=== PATIENT | female | born 1980 | race Caucasian/White ===

== ENCOUNTER 2019-11-25 17:55 | Emergency (ER) | payer OTHER, SELFPAY ==
[2019-11-25 18:15] VITALS: BP 114/79; PULSE 108; RESP 20; TEMP 36.7; O2SAT 98
--- NOTE | 2019-11-25 18:31 | ED.DENTAL ---
HPI - Dental/Oral General Chief complaint: Dental/Oral Stated complaint: tooth ache Time Seen by Provider: 11/25/19 18:31 Source: patient History of Present Illness HPI Narrative: Patient presents with pain to left upper and lower teeth. Patient states she was scheduled to have her teeth removed tomorrow but appointment was canceled due to the duran virus outbreak. Patient states she has not take anything for pain or discomfort today. Patient states she is taken ibuprofen in the past with minimal relief. Patient states she finished antibiotic prescribed by dentist 4 days ago. Patient is here today requesting something for pain due to her dental pain. Location: Tooth # (15,16,17,18 broken with caries) Duration: other (chronic) Related Data Home Medications Medication Instructions Recorded Confirmed atorvastatin 40 mg PO DAILY 11/25/19 11/25/19 diclofenac potassium 50 mg PO BID 11/25/19 11/25/19 insulin glargine [Lantus Solostar 37 unit SUBCUT DAILY 11/25/19 11/25/19 U-100 Insulin] insulin lispro [Humalog KwikPen 0 unit SUBCUT ONCE 11/25/19 11/25/19 Insulin] lisinopril 20 mg PO DAILY 11/25/19 11/25/19 venlafaxine 37.5 mg PO DAILY 11/25/19 11/25/19 Allergies Allergy/AdvReac Type Severity Reaction Status Date / Time No Known Allergies Allergy Unknown Verified 11/25/19 18:22 Review of Systems Review of Systems: Narrative: CONSTITUTIONAL: Denies fever, chills, or sweats. EYES: Denies visual changes, redness, or discharge. ENT: Denies rhinorrhea, congestion, sore throat, or otalgia. NO FEVER. NO JAW SWELLING. NO NECK SWELLING. NO LIMITATION WITH SPEAKING OR SWALLOWING. HAS A HISTORY OF DENTAL CARIES. HAS NOT SEEN A DENTIST RECENTLY. CARDIOVASCULAR: Denies chest pain, palpitations, or edema. RESPIRATORY: Denies cough or dyspnea. GASTROINTESTINAL: Denies abdominal pain, nausea, vomiting, or diarrhea. GENITOURINARY: Denies dysuria or hematuria. SKIN: Denies rash or itching. MUSCULOSKELETAL: Denies back pain, joint pain, or myalgia. NEUROLOGIC: Denies headache, numbness, or weakness. PSYCHIATRIC: Denies anxiety or depression. [facility] Comments At time of signature, agree with nursing past medical, surgical, social and family history. There is no relevant family history pertinent to the presenting complaint Exam Narrative: Exam Narrative: GENERAL: Well-appearing, well-nourished, and in no acute distress. HEAD: Normocephalic, atraumatic. EYES: PERRLA and EOMI. ENT: Nares clear, no rhinorrhea or epistaxis. Mucous membranes moist. NO TRUE APICAL SWELLING, TOOTH TENDER TO PALPATION. NO FACIAL SWELLING. NO TRISMUS. ABLE TO OPEN MOUTH FULLY. NO NECK SWELLING OR VINOD'S ANGINA. NO ABSCESS TO BE DRAINED. no drooling, trismus, facial asymmetry or significant neck swelling NECK: Supple. CHEST: Clear to auscultation. No respiratory distress. HEART: Regular rate and rhythm. No murmur heard. Normal peripheral pulses. ABDOMEN: Soft, nontender, nondistended, normal active bowel sounds. EXTREMITIES: Normal range of motion. No edema. SKIN: Warm, dry, no rash. NEURO: No focal deficits. Alert and oriented x3. Ramya Coma Scale Eye Opening: Spontaneous 4 [place] Coma Scale Motor: Obeys Commands 6 Ramya Coma Scale Verbal: Oriented 5 Ramya Coma Scale Total 15 Course Vital Signs Vital signs: Vital Signs Temperature 36.7 C 11/25/19 18:15 Pulse Rate 108 H 11/25/19 18:15 Respiratory Rate 20 11/25/19 18:15 Blood Pressure 114/79 11/25/19 18:15 Pulse Oximetry 98 11/25/19 18:15 Temperature 36.7 C 11/25/19 18:15 Pulse Rate 108 H 11/25/19 18:15 Respiratory Rate 20 11/25/19 18:15 Blood Pressure 114/79 11/25/19 18:15 Pulse Oximetry 98 11/25/19 18:15 patient states she feels much better after toradol injection. discussed red flags encouraged patient to follow up with dentist as soon as possible. MDM - Dental/Oral Differential Diagnosis Differential diagnosis: Likely gingival abscess, dental wilder
[2019-11-25] MEDS: KETOROLAC (*BKC) 60 MG/2 ML VIAL IM (18:38)
== END 2019-11-25 19:10 | disposition home or self-care (01) ==
PROVIDERS: Emergency Provider Nurse Practitioner Family
DX: K02.9 Dental caries, unspecified (principal); S02.5XXA Fracture of tooth (traumatic), initial encounter for closed fracture; X58.XXXA Exposure to other specified factors, initial encounter; E78.00 Pure hypercholesterolemia, unspecified; I10 Essential (primary) hypertension; M19.90 Unspecified osteoarthritis, unspecified site; E11.9 Type 2 diabetes mellitus without complications
CPT/HCPCS: 96372; 99213; G0463; J1885

== ENCOUNTER 2020-04-18 15:54 | Emergency (ER) | payer OTHER, SELFPAY ==
[2020-04-18 16:05] VITALS: BP 135/78; PULSE 90; RESP 18; TEMP 36.8; O2SAT 99
--- NOTE | 2020-04-18 16:15 | ED.DENTAL ---
HPI - Dental/Oral General Chief complaint: Dental/Oral Stated complaint: jaw pain Time Seen by Provider: 04/18/20 16:21 Source: patient and RN notes reviewed Mode of arrival: ambulatory Limitations: no limitations History of Present Illness HPI Narrative: This is a 39 years old female presented office for evaluations of right thigh jaw pain for 2-day.States, she has bad teeth and needed to extract eventually. She rates pain 10/10; and has tried everything otc with no relief. Related Data Home Medications Medication Instructions Recorded Confirmed atorvastatin 40 mg PO DAILY 11/25/19 04/18/20 diclofenac potassium 50 mg PO BID 11/25/19 04/18/20 insulin glargine [Lantus Solostar 37 unit SUBCUT DAILY 11/25/19 04/18/20 U-100 Insulin] insulin lispro [Humalog KwikPen 0 unit SUBCUT ONCE 11/25/19 04/18/20 Insulin] lisinopril 20 mg PO DAILY 11/25/19 04/18/20 venlafaxine 37.5 mg PO DAILY 11/25/19 04/18/20 insulin glargine [Basaglar KwikPen 25 unit SUBCUT HS 04/18/20 04/18/20 U-100 Insulin] levetiracetam 250 mg PO BID 04/18/20 04/18/20 Allergies Allergy/AdvReac Type Severity Reaction Status Date / Time No Known Allergies Allergy Unknown Verified 04/18/20 15:58 Review of Systems Review of Systems: Narrative: CONSTITUTIONAL: Denies fever ENT: Denies rhinorrhea, congestion, sore throat, otalgia. Reports right side jaw pain and painful to chew. CARDIOVASCULAR: Denies chest pain, palpitation RESPIRATORY: Denies dyspnea, wheezing, cough GASTROINTESTINAL: Denies abdominal pain, nausea, vomiting, diarrhea. SKIN: Denies rash MUSCULOSKELETAL: Denies acute back pain NEUROLOGIC: Denies lightheaded All other systems reviewed are negative, except as documented in HPI. [facility] Past Medical History Medical History (Updated 04/18/20 @ 16:27 by JUNI Brooke) Diabetes HLD (hyperlipidemia) HTN (hypertension) Migraines Peripheral neuropathy Surgical History Surgical History (Updated 04/18/20 @ 16:00 by JUNI Brooke) Hx of cholecystectomy Hx of tonsillectomy Hx of tubal ligation Family History Family History (Updated 04/18/20 @ 16:01 by JUNI Brooke) Father Heart disease Acute myocardial infarction Mother Hypertension COPD (chronic obstructive pulmonary disease) Social History Social History (Updated 04/18/20 @ 16:50 by JUNI Brooke) Smoking status: Former smoker Comments At time of signature, I agree with nursing past medical, surgical, social and family history. There is no relevant family history pertinent to the presenting complaint. Exam Narrative: Exam Narrative: GENERAL: This is a well-nourished, well-developed patient, in no apparent distress. EYES: Sclera and conjunctivae normal ENT: External ears normal. Nose and lips normal. Airway patent.Lower molars teeth are very carious and the gum is swollen and tender around it. There is no facial swelling, cervical or submandibular lymphadenopathy. CARDIOVASCULAR: Regular rate and rhythm without murmurs, gallops, or rubs. RESPIRATORY: Clear to auscultation. Breath sounds equal bilaterally. No wheezes, rales, or rhonchi. GASTROINTESTINAL: Abdomen soft, non-tender, nondistended. Bowel sounds are active. No hepato-splenomegaly, or palpable masses. No guarding. SKIN: warm, intact with no suspicious lesions or rash, good texture and turgor. NEURO: awake, alert, and oriented to person, place and time. There were no obvious focal neurologic abnormalities. Course Vital Signs Vital signs: Vital Signs Temperature 98.3 F 04/18/20 16:05 Pulse Rate 90 04/18/20 16:05 Respiratory Rate 18 04/18/20 16:05 Blood Pressure 135/78 04/18/20 16:05 Pulse Oximetry 99 04/18/20 16:05 Temperature 98.3 F 04/18/20 16:05 Pulse Rate 90 04/18/20 16:05 Respiratory Rate 18 04/18/20 16:05 Blood Pressure 135/78 04/18/20 16:05 Pulse Oximetry 99 04/18/20 16:05 MDM - Dental/Oral MDM Narrative Medical de
== END 2020-04-18 16:30 | disposition home or self-care (01) ==
PROVIDERS: Emergency Provider Nurse Practitioner; PCP Nurse Practitioner Adult Health
DX: K02.9 Dental caries, unspecified (principal); Z87.891 Personal history of nicotine dependence; E78.5 Hyperlipidemia, unspecified; I10 Essential (primary) hypertension; E11.42 Type 2 diabetes mellitus with diabetic polyneuropathy; Z79.4 Long term (current) use of insulin
CPT/HCPCS: 99213; G0463

== ENCOUNTER 2020-05-12 18:01 | Emergency (ER) | payer OTHER, SELFPAY ==
--- NOTE | ~2020-05-12 | US_ITS ---
US pelvic complete w TV DATE: 05/12/2020 21:42 INDICATION: Right lower abdominal pain. Rule out ovarian torsion. TECHNIQUE: Real-time imaging via transabdominal and transvaginal approaches COMPARISON: 05/12/2020 CT abdomen pelvis FINDINGS: The uterus measures 10 cm height, 5.8 cm transverse and 3.9 cm AP dimension. Cervical nabot hian cysts are identified. The central endometrial echo complex measures 3 mm AP dimension. Right ovary measures 3.4 x 1.6 x 1.8 cm. Left ovary measures 3.2 x 2.5 x 2.1 cm. Bilateral up to appr oximately 12 mm ovarian follicular cysts are noted. There is vascular flow to both ovaries, no eviden ce of ovarian torsion. No pelvic mass lesion or abnormal pelvic fluid collection is evident. IMPRESSION: No evidence of ovarian torsion Reviewed, dictated and finalized at [facility] Reviewed, dictated and finalized at [facility].
--- NOTE | ~2020-05-12 | CT_ITS ---
EXAMINATION: CT abdomen pelvis w con DATE: 05/12/2020 19:35 INDICATION: Right lower quadrant abdominal pain TECHNIQUE: Computed tomography (CT) of the abdomen and pelvis was performed with 100 cc Omnipaque 350 intravenous contrast. Automated exposure control and iterative reconstruction technique were employe d. Exam dose: 610.37 mGy-cm total exam DLP. COMPARISON: 05/28/2014 CT abdomen pelvis FINDINGS: Stable small pleural-based opacity in the right lower lobe and stable left greater fissural node, both unchanged since 05/28/2014. No pulmonary infiltrate or consolidation is detected in the included lower lung zones. Normal heart size. No pericardial or pleural effusion. Diffuse hepatic steatosis. No hepatic space-occupying mass lesion. Status post cholecystectomy. No bi le duct dilatation. Normal splenic size. No pancreatic mass lesion or calcification or ductal dilatation. Normal morphology of the adrenal glands. No renal mass lesion or urinary tract calculus or hydroureteronephrosis. The uterus, adnexal areas and urinary bladder unremarkable. Normal caliber of the abdominal aorta. No intraperitoneal or retroperitoneal or pelvic mass lesion or adenopathy or ascites is noted. Normal appendix. No bowel obstruction or intraperitoneal free air. Included skeletal structures are unremarkable. IMPRESSION: Normal appendix Diffuse hepatic steatosis Reviewed, dictated and finalized at [facility] Reviewed, dictated and finalized at [facility].
[2020-05-12 18:04] VITALS: BP 145/91; PULSE 97; RESP 18; TEMP 36; O2SAT 100
[2020-05-12 18:28] LABS: Basophils Absolute Auto 0.1 K/mm3 (0.0-0.1); Basophils Percent Auto 0.9 % (0.2-1.2); Eosinophils Absolute Auto 0.8 K/mm3 (0-0.3); Eosinophils Percent Auto 7.5 % (0-4.4); Hematocrit 46.2 % (37.0-47.0); Hemoglobin 15.5 g/dL (12.0-15.0); Immature Granulocyte Absolute 0.04 K/mm3 (0.00-0.031); Immature Granulocyte Percent A 0.4 % (0-0.5); Lymphocytes Absolute Auto 2.94 K/mm3 (0.9-3.2); Lymphocytes Percent Auto 29.1 % (18.3-44.2); Mean Corpuscular HGB Conc 33.5 g/dl (32-36); Mean Corpuscular Hemoglobin 26.7 pg (26-34); Mean Corpuscular Volume 79.7 fl (80-100); Mean Platelet Volume 10.9 fl (7.4-10.4); Monocytes Absolute Auto 0.4 K/mm3 (0.1-0.6); Monocytes Percent Auto 3.8 % (2.6-8.5); Neutrophils Absolute Auto 5.9 K/mm3 (1.3-6.7); Neutrophils Percent Auto 58.3 % (45.5-73.1); Platelet Count Result 325 k/mm3 (150-375); Red Cell Distribution Width 13.7 % (11.5-14.5); White Blood Count 10.1 K/mm3 (4.5-10.0)
[2020-05-12 18:30] LABS: Add Urine Microscopic? YES; Appearance Urine Clear (Clear); Bilirubin Urine Negative (Negative); Blood Urine 2+ (Negative); Color Urine Straw (Yellow); Glucose Urine UA 3+ mg/dL (Negative); Ketones Urine Negative (Negative); Leukocyte Esterase Ur Negative LEU/UL (Negative); Nitrate Urine Negative (Negative); Protein Urine Negative (Negative); Squamous Epithelial Cell Urine Few /hpf (Few); Urobilinogen Urine Negative mg/dL (<2.0)
[2020-05-12 18:32] LABS: Specific Grav Ur 1.039 (1.001-1.035)
[2020-05-12 18:40] LABS: Alanine Aminotransferase 28 U/L (4-35); Albumin Level 4.6 g/dL (3.5-5.1); Alkaline Phosphatase 72 U/L (38-126); Anion Gap 11 mmol/L (8-16); Aspartate Amino Transferase 30 U/L (14-36); Bilirubin,Total 0.5 mg/dL (0.2-1.3); Blood Urea Nitrogen 7 mg/dL (7-17); Calcium 9.9 mg/dL (8.4-10.2); Carbon Dioxide 22 mmol/L (22-30); Chloride 101 mmol/L (98-107); Estimated CRCL calculation 140 ml/min; Estimated Glomerular Filt Rate > 60; Glucose 395 mg/dL (65-105); Lipase 60 U/L (23-300); Potassium 3.7 mmol/L (3.4-5.0); Sodium 134 mmol/L (137-145)
--- NOTE | 2020-05-12 19:21 | ED.ABDPAIN ---
HPI - Abdominal Pain General Chief Complaint: Abdominal Pain Stated Complaint: abd pain Time Seen by Provider: 05/12/20 19:03 Source: patient Mode of arrival: ambulatory Limitations: no limitations History of Present Illness HPI narrative: This patient is a 40 year old female with poorly controlled diabetes, HTN who presents for evaluation of right abdominal pain. She reports she has been having pain constantly since last Saturday. Her pain radiates to her back. She denies associated nausea, vomiting or fever. She also denies urinary complaints. She was evaluated at [place] last week , and she reports having a CT scan. She states no diagnosis was found. She was told if she continued to have pain to return for evaluation. Her pain is 05/19. MD elicited complaint: abdominal pain Onset (ago): week(s) (1) Pain Consistency: constant Location: RUQ and R flank Pain scale (0-10): 9 Exacerbating factors: movement Relieving factors: nothing Related Data Patient : No Home Medications Medication Instructions Recorded Confirmed atorvastatin 40 mg PO DAILY 11/25/19 04/18/20 diclofenac potassium 50 mg PO BID 11/25/19 04/18/20 insulin glargine [Lantus Solostar 37 unit SUBCUT DAILY 11/25/19 04/18/20 U-100 Insulin] insulin lispro [Humalog KwikPen 0 unit SUBCUT ONCE 11/25/19 04/18/20 Insulin] lisinopril 20 mg PO DAILY 11/25/19 04/18/20 venlafaxine 37.5 mg PO DAILY 11/25/19 04/18/20 insulin glargine [Basaglar KwikPen 25 unit SUBCUT HS 04/18/20 04/18/20 U-100 Insulin] levetiracetam 250 mg PO BID 04/18/20 04/18/20 Allergies Allergy/AdvReac Type Severity Reaction Status Date / Time No Known Allergies Allergy Unknown Verified 05/12/20 18:13 Review of Systems Review of Systems: All systems reviewed & are unremarkable except as noted in HPI and below Constitutional: Constitutional: Denies chills and Denies fever(s) Gastrointestinal: Gastrointestinal: Reports abdominal pain, Denies diarrhea, Denies nausea and Denies vomiting Genitourinary: Genitourinary: Denies hematuria, Denies nocturia, Denies dysuria and Reports flank pain PMFSH Past Medical History Medical History Diabetes HLD (hyperlipidemia) HTN (hypertension) Migraines Peripheral neuropathy Surgical History Surgical History Hx of cholecystectomy Hx of tonsillectomy Hx of tubal ligation Family History Family History (Updated 04/18/20 @ 16:01 by JUNI Brooke) Father Heart disease Acute myocardial infarction Mother Hypertension COPD (chronic obstructive pulmonary disease) Social History Social History (Updated 04/18/20 @ 16:50 by JUNI Brooke) Smoking status: Former smoker Gender identity (if verbalized by the patient): Female Exam Const: General: no acute distress and alert Orientation/consciousness: patient oriented x3 Eyes: EOM: EOMs intact bilaterally Chest: Chest palpation & inspection: normal inspection of the chest Resp: Effort & Inspection: normal respiratory effort, no retractions and no use of accessory muscles Auscultation: clear to auscultation bilaterally Cardio: Rate: regular rate Rhythm: regular rhythm Heart sounds: no murmurs GI: GI Palp: Yes Soft to palpation, Yes Tenderness to palpation present (GI) (RUQ, RLQ, right flank), No Guarding due to palpation present (GI), No Rigid due to palpation and No Hernia present : General: Yes no CVA tenderness Skin: General skin exam: normal color Rashes: no rashes Neuro: General: patient oriented x3 and moves all extremities Extrem: General: normal to inspection Course Reevaluation(s) Reevaluation #1: Patient is sitting in bed in no acute distress. She does not appear to be in pain. She reports pain is 8/10. I discussed no definite cause of pain found but I explained her diabetes is uncontrolled. She will followup with PCP and
[2020-05-12] MEDS: SODIUM CHLORIDE 0.9% IV 1,000 ML 999 ML IV CONT ×2 (20:19)
[2020-05-12] MEDS: KETOROLAC 30 MG/ML VIAL (*BKC) IV PUSH (20:20)
[2020-05-12] MEDS: ONDANSETRON INJ 4 MG/2 ML VIAL IV PUSH (20:21)
[2020-05-12] MEDS: INSULIN HUMAN REGULAR (*BKC) 100 UNITS/ML 8 UNITS SUB-Q (20:28)
[2020-05-12 22:12] VITALS: BP 140/97; PULSE 84; RESP 22; O2SAT 99
== END 2020-05-12 22:14 | disposition home or self-care (01) ==
PROVIDERS: Emergency Medicine; Emergency Provider General Practice
DX: R10.31 Right lower quadrant pain (principal); E11.65 Type 2 diabetes mellitus with hyperglycemia; E78.5 Hyperlipidemia, unspecified; I10 Essential (primary) hypertension; E11.42 Type 2 diabetes mellitus with diabetic polyneuropathy; Z87.891 Personal history of nicotine dependence; K76.0 Fatty (change of) liver, not elsewhere classified; Z79.4 Long term (current) use of insulin
CPT/HCPCS: 36415; 74177; 76830; 76856; 80053; 81001; 81025; 83690; 85025; 96361; 96374; 96375; 99284; J1170; J1815; J1885; J2405; J7030; Q9967

== ENCOUNTER 2021-04-13 08:52 | Emergency (ER) | payer OTHER, SELFPAY ==
[2021-04-13 08:59] VITALS: BP 126/83; PULSE 88; RESP 18; TEMP 36.7; O2SAT 99
--- NOTE | 2021-04-13 09:22 | ED.EYEPROB ---
HPI - Eye Problem General Chief complaint: Eye Problems Stated complaint: Redness and swollen left Eye Source: patient and RN notes reviewed Limitations: no limitations History of Present Illness HPI Narrative: The patient, on several meds including for diabetes, presents with lid discomfort. Patient states she has typical, with half week onset of left upper lid swelling. No injury, photophobia, discharge, redness; symptoms are mild worse with palpation or blinking, unrelieved with warm compresses. Discussed plan to provide antibiotics, and to see eye doctor if not improved Related Data Home Medications Medication Instructions Recorded Confirmed atorvastatin 40 mg PO DAILY 11/25/19 04/13/21 diclofenac potassium 50 mg PO BID 11/25/19 04/13/21 insulin glargine [Lantus Solostar 37 unit SUBCUT DAILY 11/25/19 04/13/21 U-100 Insulin] insulin lispro [Humalog KwikPen 0 unit SUBCUT ONCE 11/25/19 04/13/21 Insulin] lisinopril 20 mg PO DAILY 11/25/19 04/13/21 venlafaxine 37.5 mg PO DAILY 11/25/19 04/13/21 levetiracetam 250 mg PO BID 04/18/20 04/13/21 Allergies Allergy/AdvReac Type Severity Reaction Status Date / Time No Known Allergies Allergy Unknown Verified 04/13/21 09:06 Review of Systems Review of Systems: General/Constitutional: No weight loss,fever Eyes: N0: Redness, possible discharge Ears/Nose/Throat: No: Epistaxis,ear discharge Respiratory: Denies: Hemoptysis Gastrointestinal: No Vomiting, Bleeding-rectal Skin: No Lumps, eruption Neurologic: No Focal Weakness,Sz Hematologic: Denies: Petechiae/Purpura Psychiatric: No: Suicida ideationl All Other Systems: Reviewed and Negative [facility] Past Medical History Medical History (Updated 04/13/21 @ 09:48 by Wolfgang Salazar MD) Diabetes HLD (hyperlipidemia) HTN (hypertension) Migraines Peripheral neuropathy Surgical History Surgical History Hx of cholecystectomy Hx of tonsillectomy Hx of tubal ligation Family History Family History (Updated 04/18/20 @ 16:01 by JUNI Brooke) Father Heart disease Acute myocardial infarction Mother Hypertension COPD (chronic obstructive pulmonary disease) Social History Social History (Updated 04/18/20 @ 16:50 by JUNI Brooke) Smoking status: Former smoker Gender identity (if verbalized by the patient): Female Comments At time of signature, agree with nursing past medical, surgical, social and family history. There is no relevant family history pertinent to the presenting complaint Exam Narrative: General Appearance: Well appearing, Well nourished, No distress EYE: Va 20/30; PERRLA ,Sxek-hwzergmd-aeccta : Left upper lid with internal stye, EOMI ,Lens normal), Normal corneas ; anterior chamber deep), no conjunctiva injection Ears: External ear normal, Auditory canal normal Nose: Normal nose, Nares clear Mouth/Throat: Normal appearing, Normal lips Neck: Supple, No adenopathy Respiratory: Airway patent, No respiratory distress Skin: Warm, Dry; healing acneiform and follicular changes on the face Neurological: A&O x3, CN II-X intact Psychiatric: Normal mood, Normal affect Course Vital Signs Vital signs: Vital Signs Temperature 98.0 F 04/13/21 08:59 Pulse Rate 88 04/13/21 08:59 Respiratory Rate 18 04/13/21 08:59 Blood Pressure 126/83 04/13/21 08:59 Pulse Oximetry 99 04/13/21 08:59 Temperature 98.0 F 04/13/21 08:59 Pulse Rate 88 04/13/21 08:59 Respiratory Rate 18 04/13/21 08:59 Blood Pressure 126/83 04/13/21 08:59 Pulse Oximetry 99 04/13/21 08:59 Discharge Plan Discharge Clinical Impression: Hordeolum internum left upper eyelid, Localized skin eruption Patient Disposition: Home, Self-Care Condition: Stable Instructions: Tati (ED) Additional Instructions: See eye doctor if not improved Prescriptions: New sulfamethoxazole-trimethoprim [Bactrim] 400-80 m
== END 2021-04-13 09:28 | disposition home or self-care (01) ==
PROVIDERS: Emergency Provider Emergency Medicine; PCP Nurse Practitioner Adult Health
DX: H00.024 Hordeolum internum left upper eyelid (principal); R21 Rash and other nonspecific skin eruption; Z87.891 Personal history of nicotine dependence; E11.9 Type 2 diabetes mellitus without complications; E78.5 Hyperlipidemia, unspecified; E11.42 Type 2 diabetes mellitus with diabetic polyneuropathy
CPT/HCPCS: 99213; G0463

== ENCOUNTER 2021-06-16 09:22 | Emergency (ER) | payer OTHER, SELFPAY ==
--- NOTE | 2021-06-16 09:25 | ED.SKABFB ---
HPI - Skin/Abscess/Foreign Bdy General Stated complaint: Skin Sore Time Seen by Provider: 06/16/21 09:25 Source: patient and RN notes reviewed History of Present Illness HPI narrative: Patient is a 41-year-old female who presents the urgent care with complaints of a sore in her bellybutton. Patient states that she noticed it on Saturday and has been using Neosporin to the area. Patient states it is gotten increasingly more painful and started to drain clear to yellow drainage. Patient does have an incision in the bellybutton that has been there since 2003 for gallbladder removal. Patient does have a history of staph. No other acute complaints. No acute distress noted. Patient aware of the plan of care. Some parts of this dictation were generated by voice recognition software and may contain typographical and/or grammatical inaccuracies. Related Data Home Medications Medication Instructions Recorded Confirmed atorvastatin 40 mg PO DAILY 11/25/19 06/16/21 diclofenac potassium 50 mg PO BID 11/25/19 06/16/21 insulin glargine [Lantus Solostar 37 unit SUBCUT DAILY 11/25/19 06/16/21 U-100 Insulin] insulin lispro [Humalog KwikPen 0 unit SUBCUT ONCE 11/25/19 06/16/21 Insulin] lisinopril 20 mg PO DAILY 11/25/19 06/16/21 venlafaxine 37.5 mg PO DAILY 11/25/19 06/16/21 levetiracetam 250 mg PO BID 04/18/20 06/16/21 Allergies Allergy/AdvReac Type Severity Reaction Status Date / Time No Known Allergies Allergy Unknown Verified 06/16/21 09:34 Review of Systems Review of Systems: CONSTITUTIONAL: Denies fever, chills, or sweats. EYES: Denies visual changes, redness, or discharge. ENT: Denies rhinorrhea, congestion, sore throat, or otalgia. CARDIOVASCULAR: Denies chest pain, palpitations, or edema. RESPIRATORY: Denies cough or dyspnea. GASTROINTESTINAL: Denies abdominal pain, nausea, vomiting, or diarrhea. GENITOURINARY: Denies dysuria or hematuria. SKIN: Reports of inflamed painful sore in the bellybutton MUSCULOSKELETAL: Denies back pain, joint pain, or myalgia. NEUROLOGIC: Denies headache, numbness, or weakness. All other systems reviewed are negative, except as documented in HPI. [facility] Past Medical History Medical History (Updated 06/16/21 @ 09:43 by JUNI Gaona) Diabetes HLD (hyperlipidemia) HTN (hypertension) Migraines Peripheral neuropathy Surgical History Surgical History Hx of cholecystectomy Hx of tonsillectomy Hx of tubal ligation Family History Family History (Updated 04/18/20 @ 16:01 by JUNI Brooke) Father Heart disease Acute myocardial infarction Mother Hypertension COPD (chronic obstructive pulmonary disease) Social History Social History (Updated 04/18/20 @ 16:50 by JUNI Brooke) Smoking status: Former smoker Gender identity (if verbalized by the patient): Female Comments At the time of my signature, I reviewed and agree with the nursing past medical, surgical, social, and family history. There is no relevant family history pertinent to the patient complaint. Exam Narrative: GENERAL: This is a well-nourished, well-developed patient, in no apparent distress. HEAD: normocephalic, atraumatic. EYES: PERRL. Sclera clear/white. Vision is grossly intact. EARS: External ears normal NOSE: External nose normal with no obvious nasal discharge, nares without redness, no rhinorrhea. THROAT: Mucous membranes moist NECK: Neck supple, non-tender without lymphadenopathy, masses or thyromegaly. CARDIOVASCULAR: Regular rate and rhythm without murmurs, gallops, or rubs. RESPIRATORY: Clear to auscultation. Breath sounds equal bilaterally. No wheezes, rales, or rhonchi. SKIN: Moderate erythema and tenderness to the inner bellybutton region with scant clear to yellow drainage NEURO: awake, alert, and oriented to person, place and time. There were no obvious focal neurologic abnormalities. EXTREMITIES: No clubbing, cyan
[2021-06-16 09:30] VITALS: BP 126/81; PULSE 88; RESP 18; TEMP 36.9; O2SAT 99
== END 2021-06-16 09:45 | disposition home or self-care (01) ==
PROVIDERS: Emergency Provider Nurse Practitioner Family
DX: L03.316 Cellulitis of umbilicus (principal); Z22.322 Carrier or suspected carrier of Methicillin resistant Staphylococcus aureus; F17.200 Nicotine dependence, unspecified, uncomplicated; E78.5 Hyperlipidemia, unspecified; I10 Essential (primary) hypertension; E11.42 Type 2 diabetes mellitus with diabetic polyneuropathy
CPT/HCPCS: 99213; G0463

== ENCOUNTER 2021-10-07 08:46 | Emergency (ER) | payer OTHER, SELFPAY ==
[2021-10-07 08:52] VITALS: BP 108/79; PULSE 91; RESP 20; TEMP 36.5; O2SAT 100
--- NOTE | 2021-10-07 08:52 | ED.URI ---
HPI - URI/Sore Throat General Stated Complaint: Ear Pain Source: patient and RN notes reviewed Mode of arrival: ambulatory Limitations: no limitations History of Present Illness MD elicited complaint: cough and sore throat Related Data Home Medications Medication Instructions Recorded Confirmed atorvastatin 40 mg PO DAILY 11/25/19 06/16/21 diclofenac potassium 50 mg PO BID 11/25/19 06/16/21 insulin glargine [Lantus Solostar 37 unit SUBCUT DAILY 11/25/19 06/16/21 U-100 Insulin] insulin lispro [Humalog KwikPen 0 unit SUBCUT ONCE 11/25/19 06/16/21 Insulin] lisinopril 20 mg PO DAILY 11/25/19 06/16/21 venlafaxine 37.5 mg PO DAILY 11/25/19 06/16/21 levetiracetam 250 mg PO BID 04/18/20 06/16/21 Allergies Allergy/AdvReac Type Severity Reaction Status Date / Time No Known Allergies Allergy Unknown Verified 06/16/21 09:34 Review of Systems Review of Systems: CONSTITUTIONAL: Denies malaise, chills, sweats, or fever. EYES: Denies visual changes, redness, or discharge. ENT: Reports rhinorrhea, congestion, sinus pain, otalgia and sore throat. CARDIOVASCULAR: Denies chest pain, palpitations, or edema. RESPIRATORY: Reports cough. Denies dyspnea. GASTROINTESTINAL: Denies abdominal pain, nausea, vomiting, diarrhea SKIN: Denies rash or itching. MUSCULOSKELETAL: Denies myalgia. NEUROLOGIC: Denies headache. All systems reviewed & are unremarkable except as noted in HPI and below PMFSH Past Medical History Medical History (Updated 06/17/21 @ 00:01 by Haseeb Manuel) Diabetes HLD (hyperlipidemia) HTN (hypertension) Migraines Peripheral neuropathy Surgical History Surgical History Hx of cholecystectomy Hx of tonsillectomy Hx of tubal ligation Family History Family History (Updated 04/18/20 @ 16:01 by JUNI Brooke) Father Heart disease Acute myocardial infarction Mother Hypertension COPD (chronic obstructive pulmonary disease) Social History Social History (Updated 04/18/20 @ 16:50 by JUNI Brooke) Smoking status: Former smoker Gender identity (if verbalized by the patient): Female Comments At time of signature, agree with nursing past medical, surgical, social and family history. There is no relevant family history pertinent to the presenting complaint Exam Narrative: GENERAL: Well-appearing, well-nourished, and in no acute distress. HEAD: Normocephalic EYES: PERRLA, conjunctivae clear ENT: Nares clear, turbinates edematous and erythematous, clear discharge. Mucous membranes moist. TM pearly miramontes with dull light reflex bilaterally; no tragal tenderness. Oropharynx not erythematous without lesions. Tonsils not enlarged and without exudate, no drooling, no hoarseness, no trismus, uvula midline. NECK: Supple. No lymphadenopathy CHEST: Clear to auscultation, breath sounds equal. No wheezing, rhonchi, rales, or stridor. No respiratory distress, speaks in full sentences. HEART: Regular rate and rhythm. No murmur heard. SKIN: Warm, dry, no rash. NEURO: Alert and oriented x3. PSYCH: Normal mood and affect Course Course Emergency Course: Patient is aware of diagnosis, understands and agrees to treatment plan. Anticipatory guidance given. Patient agrees to follow-up as directed and is aware of reasons to seek care at the emergency department. Portions of this record may have been created with voice recognition software Level of Care: Express Care Visit Vital Signs Vital signs: Reviewed. MDM - URI/Sore Throat MDM Narrative Medical decision making narrative: Differential diagnosis considered: Hsu virus, strep pharyngitis, allergic rhinitis, upper respiratory tract infection, sinusitis, rhinosinusitis, nasopharyngitis. viral pharyngitis, otitis media, otitis externa, pneumonia, bronchitis, viral cough syndrome, viral syndrome, and influenza. Exam findings show no acute concerns or changes; patient is non-toxic appearing and is in
--- NOTE | 2021-10-07 09:04 | ED.SKABFB ---
HPI - Skin/Abscess/Foreign Bdy General Stated complaint: Ear Pain Source: patient and RN notes reviewed Mode of arrival: ambulatory Limitations: no limitations History of Present Illness MD complaint: rash Related Data Home Medications Medication Instructions Recorded Confirmed atorvastatin 40 mg PO DAILY 11/25/19 10/07/21 diclofenac potassium 50 mg PO BID 11/25/19 10/07/21 insulin glargine [Lantus Solostar 37 unit SUBCUT DAILY 11/25/19 10/07/21 U-100 Insulin] insulin lispro [Humalog KwikPen 0 unit SUBCUT ONCE 11/25/19 10/07/21 Insulin] lisinopril 20 mg PO DAILY 11/25/19 10/07/21 venlafaxine 37.5 mg PO DAILY 11/25/19 10/07/21 levetiracetam 250 mg PO BID 04/18/20 10/07/21 Allergies Allergy/AdvReac Type Severity Reaction Status Date / Time No Known Allergies Allergy Unknown Verified 10/07/21 09:17 Review of Systems Review of Systems: CONSTITUTIONAL: Denies malaise, chills, sweats, or fever. EYES: Denies redness, or discharge. ENT: Denies rhinorrhea, congestion, swollen lips, swollen tongue CARDIOVASCULAR: Denies chest pain, palpitations, or edema. RESPIRATORY: Denies cough or dyspnea. GASTROINTESTINAL: Denies abdominal pain, nausea, vomiting SKIN: Reports rash MUSCULOSKELETAL: Denies joint painor myalgia. NEUROLOGIC: Denies headache. All systems reviewed & are unremarkable except as noted in HPI and below PMFSH Past Medical History Medical History (Updated 10/07/21 @ 09:16 by Tamie Ortiz NP) Diabetes HLD (hyperlipidemia) HTN (hypertension) Migraines Peripheral neuropathy Surgical History Surgical History Hx of cholecystectomy Hx of tonsillectomy Hx of tubal ligation Family History Family History (Updated 04/18/20 @ 16:01 by JUNI Brooke) Father Heart disease Acute myocardial infarction Mother Hypertension COPD (chronic obstructive pulmonary disease) Social History Social History (Updated 04/18/20 @ 16:50 by JUNI Brooke) Smoking status: Former smoker Gender identity (if verbalized by the patient): Female Comments At time of signature, agree with nursing past medical, surgical, social and family history. There is no relevant family history pertinent to the presenting complaint Exam Narrative: GENERAL: Well-appearing, well-nourished, and in no acute distress. HEAD: Normocephalic, atraumatic. EYES: PERRLA, conjunctivae clear, and EOMI. ENT: Mucous membranes moist. Oropharynx without edema, erythema or lesions. NECK: Supple. No lymphadenopathy CHEST: Clear to auscultation. No respiratory distress. HEART: Regular rate and rhythm. SKIN: Warm, dry. Patches of erythema and edema NEURO: Alert and oriented x3. PSYCH: Normal mood and affect Course Course Emergency Course: Patient is aware of diagnosis, understands and agrees to treatment plan. Anticipatory guidance given. Patient agrees to follow-up as directed and is aware of reasons to seek care at the emergency department. Portions of this record may have been created with voice recognition software Level of Care: Express Care Visit Vital Signs Vital signs: Vital Signs Temperature 97.7 F 10/07/21 08:52 Pulse Rate 91 10/07/21 08:52 Respiratory Rate 20 10/07/21 08:52 Blood Pressure 108/79 10/07/21 08:52 Pulse Oximetry 100 10/07/21 08:52 Temperature 97.7 F 10/07/21 08:52 Pulse Rate 91 10/07/21 08:52 Respiratory Rate 20 10/07/21 08:52 Blood Pressure 108/79 10/07/21 08:52 Pulse Oximetry 100 10/07/21 08:52 Reviewed. MDM - Skin/Abscess/Foreign Bdy MDM Narrative Medical decision making narrative: Does not appear at this time to be erythema multiforme, bullous, SJS, TEN; no evidence at this time to suggest RMSF, endocarditis or Lyme disease; patient looks well, nontoxic and is tolerating oral intake; no neurologic signs or symptoms; no headache, photophobia or neck pain; afebrile; appropriate for initial outpati
--- NOTE | 2021-10-07 09:22 | ED.EAR ---
HPI - Ear Problem General Chief complaint: Ear Stated complaint: Ear Pain Time Seen by Provider: 10/07/21 09:08 Source: patient and RN notes reviewed Mode of arrival: ambulatory Limitations: no limitations History of Present Illness HPI Narrative: 41-year-old female presents with concern for ongoing left ear pain. Reports she went to the emergency room on September 28 for ear pain, however reports she was treated for a different infection, a MRSA infection in her axillary area with Bactrim and cephalexin. Reports the provider did not address her ear pain. Reports she then went to her primary care doctor for ear pain who had her stop taking the Bactrim and cephalexin and placed her on doxycycline and neomycin polymyxin eardrops. Reports she has finished the doxycycline and has 1 dose of the eardrops left and has had no resolution of ear pain. Reports her pain is worsening, spreading to the surrounding ear area. She denies any recent history or current nasal congestion, rhinorrhea, sinus pain. She denies purulent drainage from the ear. She reports her primary provider told her to put peroxide in her ear which she has been doing, but however she now has some bleeding from the ear. MD Complaint: ear pain Related Data Home Medications Medication Instructions Recorded Confirmed atorvastatin 40 mg PO DAILY 11/25/19 10/07/21 diclofenac potassium 50 mg PO BID 11/25/19 10/07/21 insulin glargine [Lantus Solostar 37 unit SUBCUT DAILY 11/25/19 10/07/21 U-100 Insulin] insulin lispro [Humalog KwikPen 0 unit SUBCUT ONCE 11/25/19 10/07/21 Insulin] lisinopril 20 mg PO DAILY 11/25/19 10/07/21 venlafaxine 37.5 mg PO DAILY 11/25/19 10/07/21 levetiracetam 250 mg PO BID 04/18/20 10/07/21 Allergies Allergy/AdvReac Type Severity Reaction Status Date / Time No Known Allergies Allergy Unknown Verified 10/07/21 09:17 Review of Systems Review of Systems: CONSTITUTIONAL: Denies malaise, chills, sweats, or fever. EYES: Denies visual changes, redness, or discharge. ENT: Denies rhinorrhea, congestion, sinus pain, and sore throat. Reports left ear pain, pain surrounding the left ear CARDIOVASCULAR: Denies chest pain, palpitations, or edema. RESPIRATORY: Denies cough. Denies dyspnea. GASTROINTESTINAL: Denies abdominal pain, nausea, vomiting, diarrhea SKIN: Denies rash or itching. MUSCULOSKELETAL: Denies myalgia. NEUROLOGIC: Denies headache. All systems reviewed & are unremarkable except as noted in HPI and below PMFSH Past Medical History Medical History (Updated 10/07/21 @ 09:16 by Tamie Ortiz NP) Diabetes HLD (hyperlipidemia) HTN (hypertension) Migraines Peripheral neuropathy Surgical History Surgical History Hx of cholecystectomy Hx of tonsillectomy Hx of tubal ligation Family History Family History (Updated 04/18/20 @ 16:01 by JUNI Brooke) Father Heart disease Acute myocardial infarction Mother Hypertension COPD (chronic obstructive pulmonary disease) Social History Social History (Updated 04/18/20 @ 16:50 by JUNI Brooke) Smoking status: Former smoker Gender identity (if verbalized by the patient): Female Comments At time of signature, agree with nursing past medical, surgical, social and family history. There is no relevant family history pertinent to the presenting complaint Exam Narrative: GENERAL: Well-appearing, well-nourished, and in no acute distress. HEAD: Normocephalic EYES: PERRLA, conjunctivae clear ENT: Nares clear, no discharge. Mucous membranes moist. Right TM pearly miramontes with dull light reflex; left tragal tenderness with auditory canal erythema and edema, no purulent drainage. Left TM intact, erythematous and bulging without bleeding noted, no granulation tissue noted, no necrosis noted. No otorrhea noted. oropharynx not erythematous without lesions. Tonsils not enlarged and without exudate, no drooling, no hoarseness
== END 2021-10-07 09:25 | disposition home or self-care (01) ==
PROVIDERS: Emergency Provider Nurse Practitioner; PCP Nurse Practitioner Family
DX: H66.005 Acute suppurative otitis media without spontaneous rupture of ear drum, recurrent, left ear (principal); H60.502 Unspecified acute noninfective otitis externa, left ear; E78.5 Hyperlipidemia, unspecified; I10 Essential (primary) hypertension; E11.42 Type 2 diabetes mellitus with diabetic polyneuropathy
CPT/HCPCS: 99213; G0463

== ENCOUNTER 2021-11-05 12:21 | Emergency (ER) | payer OTHER, SELFPAY ==
[2021-11-05 12:24] VITALS: BP 144/102; PULSE 86; RESP 14; TEMP 36.5; O2SAT 100
--- NOTE | 2021-11-05 13:11 | ED.EAR ---
HPI - Ear Problem General Chief complaint: Ear Stated complaint: ear pain Time Seen by Provider: 11/05/21 12:30 History of Present Illness HPI Narrative: 41-year-old female presents to the emergency room with left ear pain for 1 month. Patient states she was seen in an outside emergency room 4 weeks ago, diagnosed with bilateral middle ear infections, and left otitis externa. Patient completed a course of doxycycline and polymyxin. Patient states 1 week after ER visit return to an urgent care, and was started on a course of Augmentin and Ciprodex. Patient is currently awaiting a consult with ENT. Patient states pain is worse with eating, drinking, and opening jaw. States pain is worse when using a Q-tip in her ear. Denies hearing changes. Related Data Home Medications Medication Instructions Recorded Confirmed atorvastatin 40 mg PO DAILY 11/25/19 10/07/21 diclofenac potassium 50 mg PO BID 11/25/19 10/07/21 insulin glargine [Lantus Solostar 37 unit SUBCUT DAILY 11/25/19 10/07/21 U-100 Insulin] insulin lispro [Humalog KwikPen 0 unit SUBCUT ONCE 11/25/19 10/07/21 Insulin] lisinopril 20 mg PO DAILY 11/25/19 10/07/21 venlafaxine 37.5 mg PO DAILY 11/25/19 10/07/21 levetiracetam 250 mg PO BID 04/18/20 10/07/21 Allergies Allergy/AdvReac Type Severity Reaction Status Date / Time No Known Allergies Allergy Unknown Verified 10/07/21 09:17 Review of Systems Review of Systems: CONSTITUTIONAL: Denies fever, chills, or sweats. EYES: Denies visual changes, redness, or discharge. ENT: Denies rhinorrhea, congestion, sore throat, or otalgia. Per HPI: Left ear pain CARDIOVASCULAR: Denies chest pain, palpitations, or edema. RESPIRATORY: Denies cough or dyspnea. GASTROINTESTINAL: Denies abdominal pain, nausea, vomiting, or diarrhea. GENITOURINARY: Denies dysuria or hematuria. SKIN: Denies rash or itching. MUSCULOSKELETAL: Denies back pain, joint pain, or myalgia. NEUROLOGIC: Denies headache, numbness, dizziness, or weakness. PSYCHIATRIC: Denies anxiety or depression. [facility] Past Medical History Medical History (Updated 11/05/21 @ 13:15 by Wolfgang Ragsdale APRN) Diabetes HLD (hyperlipidemia) HTN (hypertension) Migraines Peripheral neuropathy Surgical History Surgical History Hx of cholecystectomy Hx of tonsillectomy Hx of tubal ligation Family History Family History Father Heart disease Acute myocardial infarction Mother Hypertension COPD (chronic obstructive pulmonary disease) Social History Social History Smoking status: Former smoker Gender identity (if verbalized by the patient): Female Exam Narrative: GENERAL: Well-appearing, well-nourished, and in no acute distress. HEAD: Normocephalic, atraumatic. EYES: PERRLA and EOMI. ENT: Nares clear, no rhinorrhea or epistaxis. Mucous membranes moist. Oropharynx without tonsillar hypertrophy exudate or other lesions. Bilateral TMs pearly miramontes nonbulging. Clear fluid noted behind TMs; preauricular tenderness radiates down beyond the jaw line NECK: Supple. No adenopathy or masses. No carotid bruits or JVD CHEST: Clear to auscultation. No respiratory distress. No wheezes rales or rhonchi HEART: Regular rate and rhythm. No murmur heard. Normal peripheral pulses. ABDOMEN: Soft, nontender, nondistended, normal active bowel sounds. EXTREMITIES: Normal range of motion. No edema. SKIN: Warm, dry, no rash. NEURO: No focal deficits. Alert and oriented x3. PSYCH: Normal mood and affect. Course Vital Signs Vital signs: Vital Signs Temperature 36.5 C 11/05/21 12:24 Pulse Rate 86 11/05/21 12:24 Respiratory Rate 14 11/05/21 12:24 Blood Pressure 144/102 H 11/05/21 12:24 Pulse Oximetry 100 11/05/21 12:24 Temperature 36.5 C 11/05/21 12:24 Pulse Rate 86 11/05/21 12:24 Resp
[2021-11-05] MEDS: KETOROLAC (*BKC) 60 MG/2 ML VIAL IM (13:22)
== END 2021-11-05 13:47 | disposition home or self-care (01) ==
PROVIDERS: Emergency Provider Nurse Practitioner Family; PCP Nurse Practitioner Adult Health
DX: H69.92 Unspecified Eustachian tube disorder, left ear (principal); E78.5 Hyperlipidemia, unspecified; I10 Essential (primary) hypertension; E11.42 Type 2 diabetes mellitus with diabetic polyneuropathy; Z79.4 Long term (current) use of insulin
CPT/HCPCS: 96372; 99284; J1100; J1885

== ENCOUNTER 2022-11-11 01:13 | Emergency (ER) | payer OTHER, SELFPAY ==
--- NOTE | ~2022-11-11 | XR_ITS ---
EXAMINATION: XR lumbar spine 2-3V DATE: 11/11/2022 03:03 INDICATION: Low back pain. Fall. TECHNIQUE: 3 views of lumbar spine were obtained. COMPARISON: CT abdomen and pelvis 05/12/2020 FINDINGS: There is 6 degrees levocurvature of lumbar spine. Vertebral body heights are normal. There is mildly decreased disc height at L5-S1. The facet joints are unremarkable. Surgical clips overlie t he right abdomen. IMPRESSION: 1. Mild lumbar spondylosis. Reviewed, dictated and finalized at location A. [facility] IMPRESSION: 1. Mild lumbar spondylosis.
--- NOTE | ~2022-11-11 | XR_ITS ---
EXAMINATION: XR chest 1V portable DATE: 11/11/2022 03:03 INDICATION: Cough. TECHNIQUE: A single frontal view of the chest was obtained. COMPARISON: Chest 2 views 12/02/2014, CT abdomen and pelvis 05/12/2020 FINDINGS: There is no pneumonia, pleural effusion, or pneumothorax. The heart size is normal. Surgica l clips in the right upper quadrant are likely from cholecystectomy. IMPRESSION: 1. No acute cardiopulmonary disease. Reviewed, dictated and finalized at location A. [facility]
[2022-11-11 01:17] VITALS: BP 120/79; PULSE 97; RESP 14; TEMP 36.4; O2SAT 100
[2022-11-11 01:22] LABS: Glucose Point of Care 98 mg/dl (65-105)
[2022-11-11 02:09] VITALS: BP 102/73; PULSE 94; RESP 19; O2SAT 96
--- NOTE | 2022-11-11 02:31 | ECG_ITS ---
Measurements Intervals [place] Rate: 89 P: 9 MN: 178 QRS: -6 QRSD: 84 T: 38 QT: 364 QTc: 445 Interpretive Statements SINUS RHYTHM CANNOT RULE OUT SEPTAL INFARCT, AGE INDETERMINATE BASELINE ARTIFACT- I, II, III, AVR, AVL, AVF, V4-V5 ABNORMAL ECG NO PREVIOUS ECG AVAILABLE FOR COMPARISON Electronically Signed On 11-11-2022 6:37:23 ANCHORMAN by Henrique Pettit D.O.
[2022-11-11] MEDS: DEXTROSE 50% 25 GM/50 ML SYRINGE IV PUSH (02:40)
[2022-11-11 02:45] LABS: Basophils Absolute Auto 0.1 K/mm3 (0.0-0.1); Basophils Percent Auto 0.8 % (0.2-1.2); Eosinophils Absolute Auto 2.3 K/mm3 (0-0.3); Eosinophils Percent Auto 12.5 % (0-4.4); Hematocrit 43.8 % (37.0-47.0); Hemoglobin 14.4 g/dL (12.0-15.0); Immature Granulocyte Absolute 0.07 K/mm3 (0.00-0.031); Immature Granulocyte Percent A 0.4 % (0-0.5); Lymphocytes Absolute Auto 2.93 K/mm3 (0.9-3.2); Lymphocytes Percent Auto 15.9 % (18.3-44.2); Mean Corpuscular HGB Conc 32.9 g/dl (32-36); Mean Corpuscular Hemoglobin 26.9 pg (26-34); Mean Corpuscular Volume 81.9 fl (80-100); Mean Platelet Volume 10.4 fl (7.4-10.4); Monocytes Absolute Auto 0.8 K/mm3 (0.1-0.6); Monocytes Percent Auto 4.5 % (2.6-8.5); Neutrophils Absolute Auto 12.2 K/mm3 (1.3-6.7); Neutrophils Percent Auto 65.9 % (45.5-73.1); Platelet Count Result 353 k/mm3 (150-375); Red Blood Count 5.35 M/mm3 (4.2-5.4); Red Cell Distribution Width 14.1 % (11.5-14.5); White Blood Count 18.4 K/mm3 (4.5-10.0)
[2022-11-11 02:50] LABS: Glucose Point of Care 73 mg/dl (65-105)
[2022-11-11 02:54] LABS: Lactic Acid Reflex 2.1 mmol/L (0.7-2.0)
[2022-11-11 02:56] LABS: Alanine Aminotransferase 21 U/L (6-35); Albumin Level 4.5 g/dL (3.5-5.1); Alkaline Phosphatase 57 U/L (38-126); Anion Gap 8 mmol/L (8-16); Aspartate Amino Transferase 20 U/L (14-36); Bilirubin,Total 0.4 mg/dL (0.2-1.3); Blood Urea Nitrogen 12 mg/dL (7-17); Carbon Dioxide 25 mmol/L (22-30); Chloride 105 mmol/L (98-107); Estimated CRCL calculation 106 ml/min; Estimated Glomerular Filt Rate > 60; Glucose 75 mg/dL (65-110); Lipase 89 U/L (23-300); Magnesium 1.8 mg/dL (1.6-2.3); Potassium 3.1 mmol/L (3.4-5.0); Sodium 138 mmol/L (137-145)
[2022-11-11 03:17] LABS: Appearance Urine Clear (Clear); Bilirubin Urine 1+ (Negative); Blood Urine Negative (Negative); Color Urine Yellow (Yellow); Glucose Urine UA 3+ mg/dL (Negative); Ketones Urine 1+ mg/dL (Negative); Leukocyte Esterase Ur Negative LEU/UL (Negative); Nitrate Urine Negative (Negative); Protein Urine 2+ mg/dL (Negative); Urobilinogen Urine 0.2 mg/dL (<2.0)
[2022-11-11 03:20] LABS: Bacteria Urine Trace /hpf; Mucus Urine Moderate /lpf; Squamous Epithelial Cell Urine Many /hpf (Few); WBC Urine 16-20 /hpf
[2022-11-11 03:22] LABS: Add Urine Microscopic? YES
[2022-11-11 03:41] LABS: Glucose Point of Care 102 mg/dl (65-105)
--- NOTE | 2022-11-11 03:50 | ED.GENADULT ---
HPI - General Adult General Chief complaint: Syncope Stated complaint: syncopal episode, low blood sugars Time Seen by Provider: 11/11/22 02:24 History of Present Illness HPI narrative: Patient 42-year-old female who presents the emergency department with chief complaint of syncope patient reports she has prior history of diabetes and reports that her blood sugars have been bottoming out of the evenings. The patient reports she is then cut back on a lot of her diabetes medications and reports that she has had several episodes where she has passed out although these are when her blood sugars are low. Patient denies fever denies vomiting does report that she has pain in her back after she fell. Related Data Home Medications Medication Instructions Recorded Confirmed atorvastatin 40 mg tablet 40 mg PO DAILY 11/25/19 10/07/21 diclofenac potassium 50 mg tablet 50 mg PO BID 11/25/19 10/07/21 insulin glargine 100 unit/mL (3 37 unit subcut DAILY 11/25/19 10/07/21 mL) subcutaneous pen (Lantus Solostar U-100 Insulin) insulin lispro 100 unit/mL 0 unit subcut ONCE 11/25/19 10/07/21 subcutaneous pen (Humalog KwikPen (U-100) Insulin) lisinopril 20 mg tablet 20 mg PO DAILY 11/25/19 10/07/21 venlafaxine 37.5 mg 37.5 mg PO DAILY 11/25/19 10/07/21 capsule,extended release 24 hr levetiracetam 250 mg tablet 250 mg PO BID 04/18/20 10/07/21 Allergies Allergy/AdvReac Type Severity Reaction Status Date / Time No Known Allergies Allergy Unknown Verified 11/11/22 01:14 Review of Systems Review of Systems: A 10 system review of systems was completed on the patient and is negative except for what is stated in the HPI. Nursing and ancillary documentation was reviewed. [facility] Past Medical History Medical History (Updated 11/11/22 @ 04:22 by Jason Meredith MD) Diabetes HLD (hyperlipidemia) HTN (hypertension) Migraines Peripheral neuropathy Surgical History Surgical History Hx of cholecystectomy Hx of tonsillectomy Hx of tubal ligation Family History Family History Father Heart disease Acute myocardial infarction Mother Hypertension COPD (chronic obstructive pulmonary disease) Social History Social History Smoking status: Former smoker Gender identity (if verbalized by the patient): Female Exam Narrative: GENERAL: Well-appearing, well-nourished, and in no acute distress. HEAD: Normocephalic, atraumatic. EYES: PERRLA and EOMI. ENT: Nares clear, no rhinorrhea or epistaxis. Mucous membranes moist. NECK: Supple. CHEST: Clear to auscultation. No respiratory distress. HEART: Regular rate and rhythm. No murmur heard. Normal peripheral pulses. ABDOMEN: Soft, nontender, nondistended, normal active bowel sounds. Back: Tenderness to palpation in the lumbar region no bony step-off noted EXTREMITIES: Normal range of motion. No edema. SKIN: Warm, dry, no rash. NEURO: No focal deficits. Alert and oriented x3. PSYCH: Normal mood and affect. Course Vital Signs Vital signs: Vital Signs Temperature 36.4 C L 11/11/22 01:17 Pulse Rate 97 11/11/22 01:17 Respiratory Rate 14 11/11/22 01:17 Blood Pressure 120/79 11/11/22 01:17 Pulse Oximetry 100 11/11/22 01:17 Oxygen Delivery Room Air 11/11/22 01:17 Temperature 36.4 C L 11/11/22 01:17 Pulse Rate 87 11/11/22 04:01 Respiratory Rate 17 11/11/22 04:01 Blood Pressure 111/73 11/11/22 04:01 Pulse Oximetry 97 11/11/22 04:01 Oxygen Delivery Room Air 11/11/22 01:17 Medical Decision Making MDM Narrative Medical decision making narrative: Differential diagnosis includes accidental overdose of insulin. Infection, electrolyte abnormality. Chest x-ray showed no focal infiltrate Lumbar spine showed no evidence of fracture EKG interpr
[2022-11-11 04:01] VITALS: BP 111/73; PULSE 87; RESP 17; O2SAT 97
[2022-11-11] MEDS: MORPHINE SULFATE (*CRX) 4 MG/ML INJ IV PUSH (04:05)
[2022-11-11] MEDS: KETOROLAC 15 MG/ML VIAL (*BKC) IV PUSH (04:05)
[2022-11-11 05:43] LABS: Reflex Lactic Acid Yes or No Add Lactic
== END 2022-11-11 04:39 | disposition home or self-care (01) ==
PROVIDERS: Emergency Provider Emergency Medicine; PCP Nurse Practitioner Family
DX: E11.649 Type 2 diabetes mellitus with hypoglycemia without coma (principal); N39.0 Urinary tract infection, site not specified; E78.5 Hyperlipidemia, unspecified; I10 Essential (primary) hypertension; E11.42 Type 2 diabetes mellitus with diabetic polyneuropathy; Z87.891 Personal history of nicotine dependence; Z79.4 Long term (current) use of insulin; R94.31 Abnormal electrocardiogram [ECG] [EKG]; M47.816 Spondylosis without myelopathy or radiculopathy, lumbar region
CPT/HCPCS: 36415; 71045; 72100; 80053; 81001; 82948; 83605; 83690; 83735; 85025; 87077; 87086; 87088; 93005; 96365; 96367; 96375; 99284; J0131; J0696; J1885; J2270

== ENCOUNTER 2023-05-27 08:29 | Emergency (ER) | payer OTHER, SELFPAY ==
[2023-05-27 08:34] VITALS: BP 111/74; PULSE 103; RESP 20; TEMP 36.8; O2SAT 100
--- NOTE | 2023-05-27 08:53 | ED.GENADULT ---
HPI - General Adult General Chief complaint: Skin/Abscess/Foreign Body Stated complaint: Mouth Sore/Skin Sore on left Ankle Time Seen by Provider: 05/27/23 08:53 Source: patient, RN notes reviewed and old records reviewed Mode of arrival: ambulatory Limitations: no limitations History of Present Illness HPI narrative: 43year old female accompanied by family member presents to express care with complaints of left inner ankle being sore for one week duration with scabbed area noted with minimal surrounding redness. Patient reports that she has been cleaning area with peroxide, no drainage noted. Patient reports that she has white patches on her gums and mouth is burning, tongue red. Patient is edentulous. MD complaint: lesion on inner aspect of left ankle, mouth white spots and sore Onset (ago): day(s) (4 days mouth,1 week ankle lesion) Severity scale (1-10): 9 Quality: burning Treatments prior to arrival: other (cleansed ankle area with peroxide, rinsed mouth frequently) Related Data Home Medications Medication Instructions Recorded Confirmed atorvastatin 40 mg tablet 40 mg PO DAILY 11/25/19 05/27/23 diclofenac potassium 50 mg tablet 50 mg PO BID 11/25/19 05/27/23 insulin glargine 100 unit/mL (3 37 unit subcut DAILY 11/25/19 05/27/23 mL) subcutaneous pen (Lantus Solostar U-100 Insulin) insulin lispro 100 unit/mL 0 unit subcut ONCE 11/25/19 05/27/23 subcutaneous pen (Humalog KwikPen (U-100) Insulin) lisinopril 20 mg tablet 20 mg PO DAILY 11/25/19 05/27/23 levetiracetam 250 mg tablet 250 mg PO BID 04/18/20 05/27/23 albuterol sulfate 90 mcg/actuation 2 puff inhalation Q4H PRN 05/27/23 05/27/23 aerosol inhaler Shortness Of Breath Or Wheezing amitriptyline 25 mg tablet 25 mg PO QHS 05/27/23 05/27/23 amlodipine 5 mg tablet 5 mg PO DAILY 05/27/23 05/27/23 blood-glucose transmitter (Dexcom 05/27/23 05/27/23 G6 Transmitter device) dapagliflozin propanediol 10 mg 10 mg PO DAILY 05/27/23 05/27/23 tablet (Farxiga) isosorbide dinitrate 20 mg tablet 20 mg PO TID 05/27/23 05/27/23 metformin 500 mg tablet,extended 500 mg PO DAILY 05/27/23 05/27/23 release 24 hr metoprolol tartrate 25 mg tablet 25 mg PO BID 05/27/23 05/27/23 pantoprazole 40 mg tablet,delayed 40 mg PO DAILY 05/27/23 05/27/23 release pregabalin 200 mg capsule 200 mg PO TID 05/27/23 05/27/23 Allergies Allergy/AdvReac Type Severity Reaction Status Date / Time No Known Allergies Allergy Unknown Verified 05/27/23 08:53 Review of Systems Review of Systems: CONSTITUTIONAL: Denies fever, chills, or sweats. EYES: Denies visual changes, redness, or discharge. ENT: Denies rhinorrhea, congestion, sore throat, or otalgia.reports white patches on gums mouth burning CARDIOVASCULAR: Denies chest pain, palpitations, or edema. RESPIRATORY: Denies cough or dyspnea. GASTROINTESTINAL: Denies abdominal pain, nausea, vomiting, or diarrhea. GENITOURINARY: Denies dysuria or hematuria. SKIN: Denies rash or itching. scabbed lesion to inner ankle MUSCULOSKELETAL: Denies back pain, joint pain, or myalgia. NEUROLOGIC: Denies headache, numbness, or weakness. PSYCHIATRIC: Denies anxiety or depression. All systems reviewed & are unremarkable except as noted in HPI and below PMFSH Past Medical History Medical History (Updated 05/28/23 @ 08:12 by Joselin Lai NP) Diabetes HLD (hyperlipidemia) HTN (hypertension) Migraines Peripheral neuropathy Surgical History Surgical History Hx of cholecystectomy Hx of tonsillectomy Hx of tubal ligation Family History Family History Father Heart disease Acute myocardial infarction Mother Hypertension COPD (chronic obstructive pulmonary disease) Social History Social History (Updated 05/28/23 @ 08:04 by Joselin Lai NP) Smoking packs per day: 0.5 Smoking cigarettes per day: 10.0 Smokin
== END 2023-05-27 09:10 | disposition home or self-care (01) ==
PROVIDERS: Emergency Provider Registered Nurse; PCP Nurse Practitioner Family
DX: B37.0 Candidal stomatitis (principal); S91.002A Unspecified open wound, left ankle, initial encounter; X58.XXXA Exposure to other specified factors, initial encounter; E11.42 Type 2 diabetes mellitus with diabetic polyneuropathy; E78.5 Hyperlipidemia, unspecified; I10 Essential (primary) hypertension; F17.210 Nicotine dependence, cigarettes, uncomplicated
CPT/HCPCS: 99213; G0463

== ENCOUNTER 2024-01-13 17:01 | Emergency (ER) | payer OTHER, SELFPAY ==
--- NOTE | ~2024-01-13 | CT_ITS ---
EXAMINATION: CT abdomen pelvis w con DATE: 01/13/2024 20:44 INDICATION: rlq pain/ r/o appy/ovarian cyst TECHNIQUE: Computed tomography (CT) of the abdomen and pelvis was performed with 100 mL Omnipaque-350 intravenous contrast. Automated exposure control and iterative reconstruction technique were employe d. The dose-length product was 493.99 mGy-cm. COMPARISON: 05/12/2020. FINDINGS: Lower thorax: Unremarkable Liver: Enlarged. Diffuse fatty infiltration. Biliary/Gallbladder: Gallbladder is absent. No bile duct dilation. Pancreas: Coarse calcification in the pancreatic head, otherwise normal. Spleen: Normal. Adrenals:No mass. Kidneys: No suspicious mass, obstructing stone, or hydronephrosis. GI tract: Mild distal esophageal and gastric wall edema. No small or large bowel dilation. Normal mitesh endix. Mesentery/Peritoneum: No ascites, mass, or free air. Retroperitoneum: No mass. Atherosclerotic abdominal aortic and/or arterial calcifications. Pelvis: Normal urinary bladder, uterus, and ovaries. Soft Tissues: Soft tissues and body wall unremarkable. Bones: No acute osseous finding. IMPRESSION: Hepatomegaly and steatosis. Mild esophagitis/gastritis. Otherwise unremarkable CT abdomen and pelvis findings Reviewed, dictated and finalized at location K.
[2024-01-13 17:02] VITALS: BP 123/74; PULSE 100; RESP 19; TEMP 36.4; O2SAT 99
--- NOTE | 2024-01-13 18:21 | ED.ABDPAIN ---
HPI - Abdominal Pain General Chief Complaint: Abdominal Pain <Jw Smith APRN - Last Filed: 01/13/24 18:27> Stated Complaint: LRQ pain <Jw Smith APRN - Last Filed: 01/13/24 18:27> Time Seen by Provider: 01/13/24 18:21 <Jw Smith APRN - Last Filed: 01/13/24 18:27> Focused HPI: elmer is a 43-year-old female patient presenting to the emergency room today with complaints of right lower quadrant abdominal pain x2 days. She rates her pain currently a 7/10. States his sharp stabbing pain. Pain does not radiate into her back. She is currently on the Depo shot- Last menstrual period is unknown. She denies any urinary symptoms. Last bowel movement was within the last 30 minutes. General: Well-developed, well nourished, in no apparent distress. Head: Normocephalic, atraumatic. Cardio: Regular rate and rhythm, s1 and s2 normal, no murmur appreciated. Resp: Clear to auscultation bilaterally, no rhonchi, rales, wheezing or rubs. Abdomen: Soft, pliable, bowel sounds present in all quadrants, right lower quadrant tenderness, no organomegly, no CVAT tenderness. Patient screened in triage and initial orders placed. Additional care and disposition to be based upon diagnostic testing and treatment. <Jw Smith APRN - Last Filed: 01/13/24 18:27> Source: patient <Jw Smith APRN - Last Filed: 01/13/24 18:27> Mode of arrival: ambulatory <Jw Smith APRN - Last Filed: 01/13/24 18:27> Limitations: no limitations <Jw Smith APRN - Last Filed: 01/13/24 18:27> History of Present Illness HPI narrative: Patient is a 43-year-old female presents emergency department chief complaint of right lower quadrant abdominal pain. Patient reports been having pain for the last 2 days reports pain sharp report reports that it is not improved by anything. Patient reports no vomiting denies diarrhea. The patient states that she also has been pain in her lower extremities because she has run out of her Lyrica about a week ago the patient states she has chronic pain in her lower extremities as treatment that. The patient reports that she has had a prior and still has her appendix. <Jason Meredith MD - Last Filed: 01/13/24 21:29> Related Data Home Medications: Home Medications Medication Instructions Recorded Confirmed atorvastatin 40 mg tablet 40 mg PO DAILY 11/25/19 05/27/23 diclofenac potassium 50 mg tablet 50 mg PO BID 11/25/19 05/27/23 insulin glargine 100 unit/mL (3 37 unit subcut DAILY 11/25/19 05/27/23 mL) subcutaneous pen (Lantus Solostar U-100 Insulin) insulin lispro 100 unit/mL 0 unit subcut ONCE 11/25/19 05/27/23 subcutaneous pen (Humalog KwikPen (U-100) Insulin) lisinopril 20 mg tablet 20 mg PO DAILY 11/25/19 05/27/23 levetiracetam 250 mg tablet 250 mg PO BID 04/18/20 05/27/23 albuterol sulfate 90 mcg/actuation 2 puff inhalation Q4H PRN 05/27/23 05/27/23 aerosol inhaler Shortness Of Breath Or Wheezing amitriptyline 25 mg tablet 25 mg PO QHS 05/27/23 05/27/23 amlodipine 5 mg tablet 5 mg PO DAILY 05/27/23 05/27/23 blood-glucose transmitter (Dexcom 05/27/23 05/27/23 G6 Transmitter device) dapagliflozin propanediol 10 mg 10 mg PO DAILY 05/27/23 05/27/23 tablet (Farxiga) isosorbide dinitrate 20 mg tablet 20 mg PO TID 05/27/23 05/27/23 metformin 500 mg tablet,extended 500 mg PO DAILY 05/27/23 05/27/23 release 24 hr metoprolol tartrate 25 mg tablet 25 mg PO BID 05/27/23 05/27/23 pantoprazole 40 mg tablet,delayed 40 mg PO DAILY 05/27/23 05/27/23 release pregabalin 200 mg capsule 200 mg PO TID 05/27/23 05/27/23 <Jw Smith APRN - Last Filed: 05/06/24 18:27> Allergies/Adverse Reactions: Allergies Allergy/AdvReac Type Severity Reaction Status Date / Time No Known Allergies Allergy Unknown Verified 01/13/24 17:03 <Jw Smith APRN - Last Filed: 01/13/24 18:27> Rev
[2024-01-13 18:56] LABS: Basophils Absolute Auto 0.1 K/mm3 (0.0-0.1); Basophils Percent Auto 0.8 % (0.2-1.2); Eosinophils Absolute Auto 0.7 K/mm3 (0-0.3); Eosinophils Percent Auto 6.5 % (0-4.4); Hematocrit 42.3 % (37.0-47.0); Hemoglobin 13.9 g/dL (12.0-15.0); Immature Granulocyte Absolute 0.03 K/mm3 (0.00-0.031); Immature Granulocyte Percent A 0.3 % (0-0.5); Lymphocytes Absolute Auto 2.85 K/mm3 (0.9-3.2); Lymphocytes Percent Auto 26.5 % (18.3-44.2); Mean Corpuscular HGB Conc 32.9 g/dl (32-36); Mean Corpuscular Hemoglobin 26.8 pg (26-34); Mean Corpuscular Volume 81.5 fl (80-100); Mean Platelet Volume 10.7 fl (7.4-10.4); Monocytes Absolute Auto 0.5 K/mm3 (0.1-0.6); Monocytes Percent Auto 4.2 % (2.6-8.5); Neutrophils Absolute Auto 6.7 K/mm3 (1.3-6.7); Neutrophils Percent Auto 61.7 % (45.5-73.1); Platelet Count Result 290 k/mm3 (150-375); Red Blood Count 5.19 M/mm3 (4.2-5.4); Red Cell Distribution Width 14.2 % (11.5-14.5); White Blood Count 10.8 K/mm3 (4.5-10.0)
[2024-01-13 18:57] LABS: Appearance Urine Clear (Clear); Bilirubin Urine Negative (Negative); Blood Urine Negative (Negative); Color Urine Yellow (Yellow); Glucose Urine UA 3+ mg/dL (Negative); Ketones Urine Negative (Negative); Leukocyte Esterase Ur Negative LEU/UL (Negative); Nitrate Urine Negative (Negative); Protein Urine Negative (Negative); Urobilinogen Urine 0.2 mg/dL (<2.0); pH Urine 6.5 (5.0-9.0)
[2024-01-13 19:07] LABS: Alanine Aminotransferase 26 U/L (6-35); Albumin Level 4.1 g/dL (3.5-5.1); Alkaline Phosphatase 69 U/L (38-126); Anion Gap 8 mmol/L (4-12); Aspartate Amino Transferase 28 U/L (14-36); Bilirubin,Total 0.6 mg/dL (0.2-1.3); Blood Urea Nitrogen 7 mg/dL (7-17); Calcium 9.6 mg/dL (8.4-10.2); Carbon Dioxide 23 mmol/L (22-30); Chloride 110 mmol/L (98-107); Estimated CRCL calculation 106 ml/min; Estimated Glomerular Filt Rate > 60; Glucose 308 mg/dL (65-110); Lipase 51 U/L (23-300); Potassium 3.5 mmol/L (3.4-5.0); Sodium 141 mmol/L (137-145)
[2024-01-13 19:31] LABS: Specific Grav Ur 1.035 (1.001-1.035)
[2024-01-13 19:32] LABS: Add Urine Microscopic? NO
[2024-01-13 20:27] VITALS: BP 130/90; PULSE 83; RESP 18; O2SAT 99
[2024-01-13] MEDS: ONDANSETRON INJ 4 MG/2 ML VIAL IV PUSH (21:00)
[2024-01-13] MEDS: MORPHINE SULFATE (*CRX) 4 MG/ML INJ IV PUSH (21:01)
[2024-01-13 22:09] VITALS: BP 127/77; PULSE 70; RESP 20; O2SAT 97
== END 2024-01-13 21:30 | disposition home or self-care (01) ==
PROVIDERS: Nurse Practitioner Family; Emergency Provider Emergency Medicine; PCP Nurse Practitioner Family
DX: R10.31 Right lower quadrant pain (principal); E11.9 Type 2 diabetes mellitus without complications; Z79.84 Long term (current) use of oral hypoglycemic drugs; Z79.4 Long term (current) use of insulin; I10 Essential (primary) hypertension; E78.5 Hyperlipidemia, unspecified
CPT/HCPCS: 36415; 74177; 80053; 81003; 81025; 83690; 85025; 96374; 96375; 99284; J2270; J2405; Q9967

== ENCOUNTER 2024-09-24 12:31 | Emergency (ER) | payer OTHER, SELFPAY ==
[2024-09-24 12:41] VITALS: BP 136/85; PULSE 114; RESP 16; TEMP 36.8; O2SAT 99
--- NOTE | 2024-09-24 13:08 | ED.URI ---
HPI - URI/Sore Throat General Chief Complaint: Upper Respiratory Infection Stated Complaint: cough/throat Time Seen by Provider: 09/24/24 13:10 Source: patient, RN notes reviewed and old records reviewed Mode of arrival: ambulatory Limitations: no limitations History of Present Illness HPI Narrative: 44 year old female who presents to [facility] care with complaints of cough and sore throat for the past 4 days with no known fevers, chills or body aches. Patient reports that she has coughed so hard that she has thrown up, states cough is worse at night, She reports that she has used Chloraseptic spray to her throat and also used throat lozenges.Patient reports that she has not taken any cough medication or any decogestants. Patient is daily smoker reports she has drastically reduced use. Patient does have insulin pump MD elicited complaint: cough and sore throat Onset (ago): day(s) (4) Severity: moderate Able to tolerate fluids by mouth: Yes Treatments prior to arrival: other (chloraseptic spray and throat lozenges) Related Data Home Medications ?Medication ?Instructions ?Recorded ?Confirmed ?Last Taken ?Type atorvastatin 40 mg tablet 40 mg PO DAILY 11/25/19 05/27/23 Unknown History diclofenac potassium 50 mg tablet 50 mg PO BID 11/25/19 05/27/23 Unknown History insulin glargine 100 unit/mL (3 37 unit subcut DAILY 11/25/19 05/27/23 Unknown History mL) subcutaneous pen (Lantus Solostar U-100 Insulin) insulin lispro 100 unit/mL 0 unit subcut ONCE 11/25/19 05/27/23 Unknown History subcutaneous pen (Humalog KwikPen (U-100) Insulin) lisinopril 20 mg tablet 20 mg PO DAILY 11/25/19 05/27/23 Unknown History levetiracetam 250 mg tablet 250 mg PO BID 04/18/20 05/27/23 Unknown History albuterol sulfate 90 mcg/actuation 2 puff inhalation Q4H PRN 05/27/23 05/27/23 Unknown History aerosol inhaler Shortness Of Breath Or Wheezing amitriptyline 25 mg tablet 25 mg PO QHS 05/27/23 05/27/23 Unknown History amlodipine 5 mg tablet 5 mg PO DAILY 05/27/23 05/27/23 Unknown History blood-glucose transmitter (Dexcom 05/27/23 05/27/23 Unknown History G6 Transmitter device) dapagliflozin propanediol 10 mg 10 mg PO DAILY 05/27/23 05/27/23 Unknown History tablet (Farxiga) isosorbide dinitrate 20 mg tablet 20 mg PO TID 05/27/23 05/27/23 Unknown History metformin 500 mg tablet,extended 500 mg PO DAILY 05/27/23 05/27/23 Unknown History release 24 hr metoprolol tartrate 25 mg tablet 25 mg PO BID 05/27/23 05/27/23 Unknown History pantoprazole 40 mg tablet,delayed 40 mg PO DAILY 05/27/23 05/27/23 Unknown History release pregabalin 200 mg capsule 200 mg PO TID 05/27/23 05/27/23 Unknown History Allergies Allergy/AdvReac Type Severity Reaction Status Date / Time No Known Allergies Allergy Unknown Verified 01/13/24 17:03 Review of Systems Review of Systems: CONSTITUTIONAL: Reports malaise, chills, sweats, or fever. EYES: Denies visual changes, redness, or discharge. ENT: Reports rhinorrhea, congestion,no sinus pain, no otalgia and positive for sore throat. CARDIOVASCULAR: Denies chest pain, palpitations, or edema. RESPIRATORY: Reports cough.? Denies dyspnea. GASTROINTESTINAL: Denies abdominal pain, nausea, vomiting, diarrhea SKIN: Denies rash or itching. MUSCULOSKELETAL: Denies myalgia. NEUROLOGIC: Denies headache. All systems reviewed & are unremarkable except as noted in HPI and below PMFSH Past Medical History Medical History (Updated 09/26/24 @ 10:13 by Joselin Lai NP) Diabetes HTN (hypertension) HLD (hyperlipidemia) Peripheral neuropathy Migraines Surgical History Surgical History Hx of tubal ligation Hx of cholecystectomy Hx of tonsillectomy Family History Family History Father Heart disease Acute myocardial infarction Mother Hypertension COPD (chronic obstructive pulmonary disease) Social History Social History Smoking packs per day: 0.5 Smoking cigarettes per day: 10.0 Smoking status: Current every day smoker Tobacco type: cigarettes Alcohol intake: unknown Substance use type: does not use Gender identity (if verbalized by the patient): Female Comments At time of signature, agree with nursing past medical, surgical, social and family history. There is no relevant family history pertinent to the presenting complaint Exam Narrative: GENERAL: Well-appearing, well-nourished,obese, and in no acute distress. HEAD: Normocephalic EYES: PERRLA, conjunctivae clear ENT: Nares clear, turbinates edematous and erythematous, clear discharge. Mucous membranes moist. TM pearly miramontes with dull light reflex bilaterally; no tragal tenderness. Oropharynx erythematous without lesions. Tonsils not present and throat without exudate, no drooling, no hoarseness, no trismus, uvula midline.post nasal drainage noted NECK: Supple. No lymphadenopathy CHEST: Clear to auscultation, breath sounds equal. No wheezing, rhonchi, rales, or stridor. No respiratory distress, speaks in full sentences.cough noted SAO2 99% on room air HEART: Regular rate and rhythm. No murmur heard. SKIN: Warm, dry, no rash. NEURO: Alert and oriented x3. PSYCH: Normal mood and affect Course Course Emergency Course: Patient is aware of diagnosis, understands and agrees to treatment plan.? Anticipatory guidance given.? Patient agrees to follow-up as directed and is aware of reasons to seek care at the emergency department. Portions of this record may have been created with voice recognition software Level of Care: Express Care Visit Vital Signs Vital signs: Vital Signs Temperature 36.8 C 09/24/24 12:41 Pulse Rate 114 H 09/24/24 12:41 Respiratory Rate 09/24/24 12:41 Blood Pressure 136/85 09/24/24 12:41 Pulse Oximetry 99 09/24/24 12:41 Oxygen Delivery Room Air 09/24/24 12:41 Temperature 36.8 C 09/24/24 12:41 Pulse Rate 114 H 09/24/24 12:41 Respiratory Rate 09/24/24 12:41 Blood Pressure 136/85 09/24/24 12:41 Pulse Oximetry 99 09/24/24 12:41 Oxygen Delivery Room Air 09/24/24 12:41 Reviewed MDM - URI/Sore Throat MDM Narrative Medical decision making narrative: Differential diagnosis considered: Hsu virus, strep pharyngitis, allergic rhinitis, upper respiratory tract infection, sinusitis, rhinosinusitis, nasopharyngitis. viral pharyngitis, otitis media, otitis externa, pneumonia, bronchitis, viral cough syndrome, viral syndrome, and influenza.? Exam findings show no acute concerns or changes; patient is non-toxic appearing and is in no distress.? Patient is appropriate for outpatient treatment and follow-up. Differential Diagnosis Differential diagnosis: Likely upper respiratory infection, sinusitis, viral infection, pharyngitis and other (cough) Medical Records Attestation: I reviewed the patient's medical records. Lab Data Attestation: I reviewed the patient's lab results. Lab results narrative: strep screen negative, culture sent Labs: Lab Results 09/24/24 Range/Units 13:16 POC Grp A Strep Screen Negative (Negative) reviewed Critical Care Time Critical Care Time Critical Care Time: No Discharge Plan Discharge Clinical Impression: Cough in adult Upper respiratory infection Qualifiers: URI type: unspecified URI Qualified Code(s): J06.9 - Acute upper respiratory infection, unspecified Patient Disposition: Home, Self-Care Condition: Stable Instructions: Antibiotic Form, Acute Cough (ED) Additional Instructions: Increase fluids especially juices and water [id number] cough and cold medicine of your choice for your symptoms Continue your inhaler/nebulizer as directed heat to the face 20-30 minutes 4-6 times a day for pain Salt water gargles, throat lozenges or throat sprays as desired Antibiotic as directed--finished the medication If your symptoms persist, change or worsen significantly before you can contact your personal physician then please, without delay, go to the emergency department for further evaluation. Follow-up with PCP in 7-10 days or sooner if needed Follow up with PCP soon in regards to your blood pressure which is elevated above threshold for referral. Blood pressure above 120/80 may indicate pre-hypertension. 136/85 Completely quit smoking Patient Language: Khmer Prescriptions: New amoxicillin 500 mg capsule 500 mg PO Q8H Qty: 30 0RF albuterol sulfate 90 mcg/actuation HFA aerosol inhaler 2 puff inhalation QID PRN (Reason: shortness of breath or wheezing) Qty: 8.5 0RF Rx Instructions: for acute cough fexofenadine [[facility] Allergy] 180 mg tablet 180 mg PO DAILY Qty: 20 0RF No Action levetiracetam 250 mg tablet 250 mg PO BID diclofenac potassium 50 mg Tablet 50 mg PO BID insulin lispro [Humalog KwikPen Insulin] 100 unit/mL Insulin Pen 0 unit SUBCUT ONCE Rx Instructions: sliding scale insulin glargine [Lantus Solostar U-100 Insulin] 100 unit/mL (3 mL) Insulin Pen 37 unit SUBCUT DAILY atorvastatin 40 mg Tablet 40 mg PO DAILY lisinopril 20 mg Tablet 20 mg PO DAILY isosorbide dinitrate 20 mg tablet 20 mg PO TID Farxiga 10 mg tablet 10 mg PO DAILY amitriptyline 25 mg tablet 25 mg PO QHS pantoprazole 40 mg tablet,delayed release (DR/EC) 40 mg PO DAILY pregabalin 200 mg capsule 200 mg PO TID (DME) Dexcom G6 Transmitter Device MISCELLANEOUS metformin 500 mg tablet extended release 24 hr 500 mg PO DAILY amlodipine 5 mg tablet 5 mg PO DAILY metoprolol tartrate 25 mg tablet 25 mg PO BID albuterol sulfate 90 mcg/actuation HFA aerosol inhaler 2 puff INHALATION Q4H PRN (Reason: Shortness Of Breath Or Wheezing) mupirocin 2 % ointment 1 applic topical BID Qty: 22 0RF nystatin 100,000 unit/mL suspension 4 ml PO QID 14 Days Qty: 224 0RF Rx Instructions: swish and swallow fluticasone propionate [Flonase Allergy Relief] 50 mcg/actuation spray,suspension 1 spray intranasal BID Qty: 16 0RF Rx Instructions: administer into each nostril dicyclomine 20 mg tablet 20 mg PO QID PRN (Reason: abdominal discomfort) Qty: 20 0RF ondansetron 4 mg tablet,disintegrating 4 mg PO Q8H PRN (Reason: nausea and vomiting) Qty: 10 0RF Follow-up/Referrals: Jorge Luis,JUNI Winn [Primary Care Provider] - Time of Disposition: 13:30 Quality Home Coma Scale Eyes: Open Verbal: Oriented and Alert Motor: Follows Commands Home Coma Total Score: 15
[2024-09-24 13:27] LABS: EDSTREPNEGPOS1 Negative (Negative)
== END 2024-09-24 13:36 | disposition home or self-care (01) ==
PROVIDERS: Emergency Provider Registered Nurse; PCP Nurse Practitioner Family
DX: J06.9 Acute upper respiratory infection, unspecified (principal); E11.9 Type 2 diabetes mellitus without complications; I10 Essential (primary) hypertension; E78.5 Hyperlipidemia, unspecified; F17.210 Nicotine dependence, cigarettes, uncomplicated
CPT/HCPCS: 87081; 87880; 99213; G0463